=== PATIENT | female | born 1980 | race Hispanic/Latino ===

== ENCOUNTER 2021-09-15 17:19 | Emergency (ER) | payer OTHER ==
[~2021-09-15] VITALS: Ht 157.5 cm; Wt 63.5 kg
[2021-09-15 17:43] VITALS: BP 113/54
== END 2021-09-15 21:32 | disposition left against medical advice (07) ==
LOC: EDH 17:19
DX: M25.572 Pain in left ankle and joints of left foot (principal); Z53.21 Procedure and treatment not carried out due to patient leaving prior to being seen by health care provider